=== PATIENT | female | born 1970 | race Caucasian/White ===

== ENCOUNTER → 2017-09-13 11:00 | Outpatient (CLI) | payer MEDICAID, SELFPAY ==
[2017-09-13 11:10] VITALS: PULSE 105; PULSE 109; PULSE 111; PULSE 70; PULSE 74; PULSE 77; PULSE 81; PULSE 92; O2SAT 92; O2SAT 93; O2SAT 95; O2SAT 96; O2SAT 97
--- NOTE | 2017-09-14 07:47 | WT_ITS ---
PSN 6 Minute Walk Test - 6 Minute Walk Test 6 Minute Walk Test: 6 Minute Walk Test PSN:6-Minute Walk Test Start: 09/13/17 11: 29 Freq: Status: Active Protocol: [id number] Document 09/13/17 11:10 CRISSY (Rec: 09/13/17 11:32 [facility] [place] [id number]) 6 Minute Walk Test Date Performed 09/13/17 Time Performed 11:10 Height 5 ft 8 in Weight: 228 lb 3.274 oz Weight in Pounds 228.[address]: Jennifer Riley Assistive device used: None Pre-test Oxygen Delivery Method Room Air Pulse Ox (%) 97 Pulse Rate (60-100 beats/min) 77 Dyspnea Christal Scale (0-10) 0.5 Exertion Christal Scale (6-20) 6 1st minute Oxygen Delivery Method Room Air Pulse Ox (%) 93 Pulse Rate (60-100 beats/min) 74 Number of Rests Taken 0 2nd minute Oxygen Delivery Method Room Air Pulse Ox (%) 92 Pulse Rate (60-100 beats/min) 81 Number of Rests Taken 0 3rd minute Oxygen Delivery Method Room Air Pulse Ox (%) 95 Pulse Rate (60-100 beats/min) 111 H Number of Rests Taken 0 4th minute Oxygen Delivery Method Room Air Pulse Ox (%) 92 Pulse Rate (60-100 beats/min) 109 H Number of Rests Taken 0 5th minute Oxygen Delivery Method Room Air Pulse Ox (%) 95 Pulse Rate (60-100 beats/min) 92 Number of Rests Taken 0 6th minute Oxygen Delivery Method Room Air Pulse Ox (%) 97 Pulse Rate (60-100 beats/min) 105 H Number of Rests Taken 0 Post-test Oxygen Delivery Method Room Air Pulse Ox (%) 96 Pulse Rate (60-100 beats/min) 70 Dyspnea Christal Scale (0-10) 3 Exertion Christal Scale (6-20) 12 Full Laps Walked 20 Partial Lap, Number of Tiles Walked 17 Total Distance Walked (ft) 1197 - Interpretation Interpretation: The patient ambulated 1197 feet over the course of 6 minutes beginning on room air without assistive devices or breaks. Pretesting oxygen saturation was noted to be 97% on room air. With ambulation, the osiris oxygen saturation was 92% at minute 4 of testing. This represents a significant exertional oxygen desaturation. - Recommendations Recommendations: There is no current indication for the use of supplemental oxygen. However, close interval follow-up is recommended given the degree of oxygen desaturation noted with exertion during this study.
== END ==
PROVIDERS: Visit Provider Nurse Practitioner Acute Care
DX: J44.9 Chronic obstructive pulmonary disease, unspecified (principal)
CPT/HCPCS: 94618

== ENCOUNTER → 2017-09-14 07:44 | Outpatient (CLI) | payer MEDICAID, SELFPAY ==
--- NOTE | 2017-09-15 06:30 | PFT ---
INTRODUCTION: The patient is a 46-year-old female currently under the care of Jennifer Riley NP that presents for pulmonary function testing secondary to a diagnosis of COPD. Respiratory therapy reports good patient effort and reports no other concerns. Bronchodilators were used during testing. INTERPRETATION: Forced expiration spirometry demonstrates the presence of a mild large airways obstructive ventilatory defect. There was no significant response to aerosolized bronchodilators, based upon strict ATS criteria. Spirograms are of good quality and do not plateau indicating slow emptying of the lungs. Body plethysmography was performed and reveals lung volumes to be within normal limits. Diffusing capacity by single breath CO is mildly reduced at 67% of predicted. IMPRESSION: These pulmonary function studies demonstrate the presence of an irreversible mild large airways obstructive ventilatory defect with a symmetric reduction in diffusing capacity.
== END ==
PROVIDERS: Visit Provider Nurse Practitioner Acute Care
DX: J44.9 Chronic obstructive pulmonary disease, unspecified (principal)
CPT/HCPCS: 94060; 94726; 94729